=== PATIENT | male | born 1960 | race Caucasian/White ===

== ENCOUNTER 2019-04-25 07:15 | Emergency (ER) | payer MEDICARE ==
[~2019-04-25] VITALS: Ht 193 cm; Wt 95.1 kg
[~2019-04-25 07:15] MED LIST: AZIT200S PO; B12 INJECTION SC; CEFD250S26 PO; CEPH-368 PO; CLON1TAB11 PO; FENT1PAT76 TD; HYDR-36 PO; IBUPROFEN PO; METH750T87 PO; MORP60TA63 PO; OXYC30TA74 PO; OXYC5SOL8 PO; SILD50TA PO; TESTOSTERONE SC; TIZA4TAB2 PO; TRAM50TA2 PO
[2019-04-25 07:21] VITALS: BP 132/81
--- NOTE | 2019-04-25 07:28 | NUR ---
EKG IN TRIAGE
--- NOTE | 2019-04-25 07:39 | NUR ---
OVER THE LAST WEEK I HAVE BEEN FEELING PROGGRESSIVELY TREMULOUS. THIS MORNING I WOKE UP WITH CHEST PAINS THAT RADIATED DOWN MY LEFT ARM. HX of AFIB-CONTROLLED WITH MULTAQ PRESCRIBED BY DR. WINTERS ON [facility]
--- NOTE | 2019-04-25 07:50 | NUR ---
WITH [facility] PATIENT FILLED [address] KLONOPIN MID MARCH. DENIES DOING SO HOWEVER, WITH FURTHER CONVERSATION PATIENT ADMITS TO HAVING TROUBLE GETTING REFILL FOR KLONOPIN FOR THE LAST YEARS (HAS BEEN TAKING FOR 20 YEARS). REPORTS LAST PILL 17 DAYS AGO
[2019-04-25] MEDS ORDERED: METO50TA82 PO (07:52)
[2019-04-25] MEDS ORDERED: DRON400T PO (07:52)
[2019-04-25] MEDS ORDERED: RIVA20TA PO (07:52)
[2019-04-25] MEDS ORDERED: SERT-237 PO (07:52)
--- NOTE | 2019-04-25 08:00 | NUR ---
PATIENT LEFT BEFORE DISCHARGE PAPERWORK COULD BE SIGNED. ER PROVIDER MADE AWARE NO PIV IN PLACE
[2019-04-25 08:48] LABS: BASOPHILS # (AUTO) 0.05 x10^3/uL (0-0.1); BASOPHILS % (AUTO) 1 % (0-1); EOSINOPHILS # (AUTO) 0.26 x10^3/uL (0-0.4); EOSINOPHILS % (AUTO) 3 % (1-7); LYMPHOCYTES # (AUTO) 1.09 x10^3/uL (1-3.4); LYMPHOCYTES % (AUTO) 14 % (22-44); MD NO; MEAN CORPUSCULAR HEMOGLOBIN 32.6 pg (27.5-34.5); MEAN CORPUSCULAR VOLUME 95.8 fL (81-97); MEAN PLATELET VOLUME 7.6 fL (7.4-10.4); MONOCYTES # (AUTO) 0.49 x10^3/uL (0.2-0.8); MONOCYTES % (AUTO) 6 % (2-9); NEUTROPHILS # (AUTO) 6.03 x10^3/uL (1.8-6.8); NEUTROPHILS % (AUTO) 76 % (42-75); PLATELET COUNT 284 x10^3/uL (130-400); RED BLOOD COUNT 4.98 x10^6/uL (4.38-5.82); RED CELL DISTRIBUTION WIDTH 13.1 % (9.4-14.8)
[2019-04-25 08:58] LABS: ALANINE AMINOTRANSFERASE 52 U/L (12-78); ALBUMIN 3.1 g/dL (3.4-5.0); ANION GAP 6 mmol/L (5-15); CALCIUM 8.4 mg/dL (8.5-10.1); CHLORIDE 112 mmol/L (98-107); CREATININE 0.99 mg/dL (0.7-1.3)
[2019-04-25 09:02] LABS: ALKALINE PHOSPHATASE 89 U/L (45-117); BILIRUBIN,TOTAL 0.2 mg/dL (0.2-1.0); TOTAL PROTEIN 6.7 g/dL (6.4-8.2); TROPONIN I < 0.015 ng/mL (0.000-0.045)
== END 2019-04-25 09:22 | disposition home or self-care (01) ==
LOC: ED 08:09
DX: R06.00 Dyspnea, unspecified (principal); F41.1 Generalized anxiety disorder; R06.4 Hyperventilation; Z90.49 Acquired absence of other specified parts of digestive tract
CPT/HCPCS: 36415; 71045; 80053; 84484; 85025; 93005; 99284

== ENCOUNTER 2019-07-24 10:42 | Emergency (ER) | payer MEDICARE ==
[~2019-07-24] VITALS: Ht 193 cm; Wt 95.7 kg
[~2019-07-24 10:42] MED LIST changes: +DRON400T PO; +METO50TA82 PO; +RIVA20TA PO; +SERT-237 PO
--- NOTE | 2019-07-24 11:00 | NUR ---
ASSUMED CARE OF PATIENT IN ROOM 15. DR. MCALLISTER AT BEDSIDE PERFORMING ULTRASOUND ON FACIAL TISSUE.
[2019-07-24 11:02] VITALS: BP 133/77
[2019-07-24] MEDS ORDERED: ALPR0.5T6 PO (11:07)
[2019-07-24] MEDS ORDERED: CYCL-259 PO (11:07)
[2019-07-24] MEDS ORDERED: SODIUM CHLORIDE 0.9% 1,000ML IVBOLUS ONE (11:30)
[2019-07-24] MEDS ORDERED: CEFTRIAXONE PMX 1GM/50ML 50 ML IV ONE (11:30)
[2019-07-24] MEDS ORDERED: MORPHINE SULFATE 4 MG/ML, 1ML ONE ×2 (11:33→12:02)
[2019-07-24] MEDS ORDERED: CEFTRIAXONE PMX 1GM/50ML 50 ML ONE (11:33)
--- NOTE | 2019-07-24 11:40 | NUR ---
BREAK RN: PT UPRIGHT ON GURNEY AWAKE & CALM, C/O PAIN TO LIP- MEDICATED PER EMAR, NO RESP DISTRESS, RESPONDS APPROP TO STAFF, COMFORT MEASURES PROVIDED, CALL LIGHT WITHIN REACH.
[2019-07-24] MEDS: MORPHINE SULFATE 4 MG/ML, 1ML IVPush PRN ×2 (11:43→12:10)
[2019-07-24 11:45] LABS: BASOPHILS # (AUTO) 0.01 x10^3/uL (0-0.1); BASOPHILS % (AUTO) 0 % (0-1); EOSINOPHILS # (AUTO) 0.02 x10^3/uL (0-0.4); EOSINOPHILS % (AUTO) 0 % (1-7); LYMPHOCYTES # (AUTO) 0.58 x10^3/uL (1-3.4); LYMPHOCYTES % (AUTO) 4 % (22-44); MD NO; MEAN CORPUSCULAR HEMOGLOBIN 31.9 pg (27.5-34.5); MEAN PLATELET VOLUME 8.2 fL (7.4-10.4); MONOCYTES # (AUTO) 1.23 x10^3/uL (0.2-0.8); MONOCYTES % (AUTO) 8 % (2-9); NEUTROPHILS # (AUTO) 13.92 x10^3/uL (1.8-6.8); NEUTROPHILS % (AUTO) 88 % (42-75); PLATELET COUNT 191 x10^3/uL (130-400); RED BLOOD COUNT 5.31 x10^6/uL (4.38-5.82); RED CELL DISTRIBUTION WIDTH 13.9 % (9.4-14.8)
[2019-07-24 12:02] LABS: ALBUMIN 3.3 g/dL (3.4-5.0); ANION GAP 8 mmol/L (5-15); CALCIUM 8.5 mg/dL (8.5-10.1); CHLORIDE 105 mmol/L (98-107)
--- NOTE | 2019-07-24 13:26 | NUR ---
Patient given discharge instructions and they have confirmed that they understand the instructions. Patient ambulatory with steady gait.
== END 2019-07-24 13:27 | disposition home or self-care (01) ==
LOC: ED 11:10
DX: K13.0 Diseases of lips (principal); R51 Headache; I48.91 Unspecified atrial fibrillation
CPT/HCPCS: 36415; 80048; 82040; 83605; 85025; 87040; 87077; 87147; 96365; 96375; 99283; J0696; J2270; J7030; 87186

== ENCOUNTER 2019-07-25 11:09 | Inpatient (IN) | payer MEDICARE ==
[~2019-07-25] VITALS: Ht 193 cm; Wt 97.0 kg
[~2019-07-25 11:09] MED LIST changes: +ALPR0.5T6 PO; +CYCL-259 PO
[2019-07-25] MEDS ORDERED: PHARMACOKINETIC CONSULTATION MC ONE ×2 (12:00→18:30)
[2019-07-25] MEDS ORDERED: VANCOMYCIN 2,000 MG in SODIUM CHLORIDE 0.9% 500 ML IV ONE (12:00)
[2019-07-25] MEDS ORDERED: VANCOMYCIN PER PHARMACY MC ONE (12:00)
[2019-07-25] MEDS ORDERED: SODIUM CHLORIDE 0.9% 1,000ML IVBOLUS ONE (12:00)
[2019-07-25] MEDS ORDERED: MORPHINE SULFATE 4 MG/ML, 1ML ONE ×2 (12:06→13:02)
[2019-07-25] MEDS ORDERED: ONDANSETRON 2MG/ML, 2ML ONE (12:06)
[2019-07-25 12:13] LABS: MEAN CORPUSCULAR HEMOGLOBIN 31.9 pg (27.5-34.5); MEAN CORPUSCULAR HGB CONC 33.1 g/dL (33.2-36.2); MEAN CORPUSCULAR VOLUME 96.3 fL (81-97); MEAN PLATELET VOLUME 7.8 fL (7.4-10.4); PLATELET COUNT 191 x10^3/uL (130-400); RED BLOOD COUNT 5.06 x10^6/uL (4.38-5.82); RED CELL DISTRIBUTION WIDTH 14.1 % (9.4-14.8)
[2019-07-25] MEDS: MORPHINE SULFATE 4 MG/ML, 1ML IVPush PRN ×3 (12:14→20:33)
[2019-07-25 12:21] LABS: ALBUMIN 2.9 g/dL (3.4-5.0); ANION GAP 10 mmol/L (5-15); CALCIUM 8.5 mg/dL (8.5-10.1); CHLORIDE 101 mmol/L (98-107)
--- NOTE | 2019-07-25 12:21 | NUR ---
IV PLACED, LABS DRAWN WITH START. IVF AND ANTIBIOTIC INFUSING PER ERP ORDER. PT MEDICATED FOR 9.5/10 FACE/HEAD PAIN. VSS/UPDATED IN COMPUTER. PT PLACED ON ALL ROOM MONITORING DEVICES. CALL LIGHT WITHIN REACH, WARM BLANKET PROVIDED.
[2019-07-25 12:25] LABS: ALANINE AMINOTRANSFERASE 26 U/L (12-78); ALKALINE PHOSPHATASE 134 U/L (45-117); BILIRUBIN,TOTAL 1.1 mg/dL (0.2-1.0); CREATININE 1.53 mg/dL (0.7-1.3); TOTAL PROTEIN 6.8 g/dL (6.4-8.2)
[2019-07-25] MEDS ORDERED: ONDANSETRON 2MG/ML, 2ML IVPush ONE (12:30)
[2019-07-25 12:50] LABS: BASOPHILS # (AUTO) 0.04 x10^3/uL (0-0.1); BASOPHILS % (AUTO) 0 % (0-1); EOSINOPHILS # (AUTO) 0.02 x10^3/uL (0-0.4); EOSINOPHILS % (AUTO) 0 % (1-7); LYMPHOCYTES # (AUTO) 0.53 x10^3/uL (1-3.4); LYMPHOCYTES % (AUTO) 3 % (22-44); MD SCAN; MONOCYTES # (AUTO) 0.91 x10^3/uL (0.2-0.8); MONOCYTES % (AUTO) 6 % (2-9); NEUTROPHILS # (AUTO) 13.92 x10^3/uL (1.8-6.8); NEUTROPHILS % (AUTO) 90 % (42-75)
--- NOTE | 2019-07-25 13:00 | NUR ---
VSS/UPDATED IN COMPUTER
--- NOTE | 2019-07-25 13:30 | NUR ---
PT IN CT.
[2019-07-25] MEDS ORDERED: OMNIPAQUE 350 MG/ML, 75ML BOTTLE ONE (13:39)
--- NOTE | 2019-07-25 14:05 | NUR ---
DR DE LEON IN TO SEE PT.
[2019-07-25] MEDS ORDERED: VANCOMYCIN PER PHARMACY MC PRN (14:30)
[2019-07-25] MEDS ORDERED: PIPERACILLIN/TAZO/PMX 3.375GM 50 ML IV SCH (14:30)
--- NOTE | 2019-07-25 14:36 | NUR ---
REPORT TO MARIA ELENA DAVEY, PT READY FOR TRANSPORT AFTER I&D OF LIP. PT REQUESTING 2ND DOSE OF MORPHINE, STATES NO CHANGE IN PAIN LEVEL SINCE 1ST DOSE.
[2019-07-25 14:40] LABS: TROPONIN I < 0.015 ng/mL (0.000-0.045)
--- NOTE | 2019-07-25 14:52 | NUR ---
PINK SEPSIS SHEET TO ACCOMPANY PT.
[2019-07-25] MEDS ORDERED: LIDOCAINE-MPF 1%, 5ML ONE (14:57)
[2019-07-25] MEDS ORDERED: LIDOCAINE 1%, 10ML INFIL ONE (15:00)
[2019-07-25] MEDS ORDERED: PHARMACY MAY ADJ FOR RENAL FX MC PRN (15:30)
--- NOTE | 2019-07-25 15:36 | NUR ---
I&D COMPLETED. CHANGE IN ROOM DISPO. ORDER FROM [facility] FOR MED/TELE.
[2019-07-25] MEDS ORDERED: PIPERACILLIN/TAZO/PMX 3.375GM 50 ML ONE (15:42)
[2019-07-25] MEDS: SODIUM CHLORIDE 0.9% 1,000 ML IV SCH (16:04)
--- NOTE | 2019-07-25 16:10 | NUR ---
TELE 2 ADMIT, CONTINUE TO HOLD IN ED UNTIL ROOM AVAILABLE. NS AND ZOSYN INFUSING PER ADMIT ORDER. UNABLE TO DOCUMENT ZOSYN ON EMAR. ZOSYN STARTED AT 1600.
--- NOTE | 2019-07-25 16:54 | NUR ---
REPORT TO RENEE DAVEY, PT READY FOR TRANSPORT.
[2019-07-25 17:42] VITALS: BP 95/60
[2019-07-25 17:44] LABS: ANION GAP 4 mmol/L (5-15); CALCIUM 8.1 mg/dL (8.5-10.1); CHLORIDE 104 mmol/L (98-107); CREATININE 1.17 mg/dL (0.7-1.3)
[2019-07-25] MEDS ORDERED: PHARMACOKINETIC MONITORING MC PRN (18:30)
[2019-07-25] MEDS ORDERED: OMNIPAQUE 350 MG/ML, 100ML BOTTLE ONE (19:00)
[2019-07-25 20:00] VITALS: BP 100/67
[2019-07-25] MEDS ORDERED: RIVAROXABAN 20 MG TABLET PO SCH (20:30)
[2019-07-25 20:48] LABS: TROPONIN I < 0.015 ng/mL (0.000-0.045)
[2019-07-26] MEDS: MORPHINE SULFATE 4 MG/ML, 1ML IVPush PRN ×6 (00:49→21:22)
[2019-07-26] MEDS: SODIUM CHLORIDE 0.9% 1,000 ML IV SCH ×4 (00:50→23:43)
[2019-07-26 02:00] VITALS: BP 93/63
[2019-07-26 05:53] LABS: BASOPHILS # (AUTO) 0.03 x10^3/uL (0-0.1); BASOPHILS % (AUTO) 0 % (0-1); EOSINOPHILS # (AUTO) 0.11 x10^3/uL (0-0.4); EOSINOPHILS % (AUTO) 1 % (1-7); LYMPHOCYTES # (AUTO) 0.67 x10^3/uL (1-3.4); LYMPHOCYTES % (AUTO) 7 % (22-44); MD NO; MEAN CORPUSCULAR HEMOGLOBIN 32.4 pg (27.5-34.5); MEAN CORPUSCULAR HGB CONC 34.2 g/dL (33.2-36.2); MEAN CORPUSCULAR VOLUME 94.7 fL (81-97); MEAN PLATELET VOLUME 8.1 fL (7.4-10.4); MONOCYTES # (AUTO) 0.93 x10^3/uL (0.2-0.8); MONOCYTES % (AUTO) 10 % (2-9); NEUTROPHILS # (AUTO) 7.78 x10^3/uL (1.8-6.8); NEUTROPHILS % (AUTO) 82 % (42-75); PLATELET COUNT 145 x10^3/uL (130-400); RED BLOOD COUNT 4.26 x10^6/uL (4.38-5.82); RED CELL DISTRIBUTION WIDTH 14.4 % (9.4-14.8)
[2019-07-26 05:59] LABS: ALBUMIN 2.4 g/dL (3.4-5.0); ANION GAP 8 mmol/L (5-15); CHLORIDE 104 mmol/L (98-107)
[2019-07-26 06:04] LABS: ALANINE AMINOTRANSFERASE 21 U/L (12-78); ALKALINE PHOSPHATASE 117 U/L (45-117); TOTAL PROTEIN 6.1 g/dL (6.4-8.2); TROPONIN I 0.023 ng/mL (0.000-0.045)
[2019-07-26] MEDS: METOPROLOL TARTRATE 50 MG TAB PO SCH (07:56)
[2019-07-26 08:09] VITALS: BP 114/69
[2019-07-26] MEDS ORDERED: AMPICILLIN/SULBACTAM 3 GM in SODIUM CHLORIDE 0.9% 100 ML IV SCH (09:00)
[2019-07-26] MEDS ORDERED: VANCOMYCIN 2,000 MG in SODIUM CHLORIDE 0.9% 500 ML IV SCH (12:00)
[2019-07-26 14:27] VITALS: BP 103/66
[2019-07-26] MEDS ORDERED: RIVAROXABAN 20 MG TABLET PO SCH (17:00)
[2019-07-26 18:54] VITALS: BP 110/71
[2019-07-27 00:47] VITALS: BP 132/75
[2019-07-27] MEDS: MORPHINE SULFATE 4 MG/ML, 1ML IVPush PRN ×2 (01:29→06:14)
[2019-07-27] MEDS: VANCOMYCIN 2,000 MG in SODIUM CHLORIDE 0.9% 500 ML IV SCH ×2 (05:35→23:37)
[2019-07-27] MEDS: SODIUM CHLORIDE 0.9% 1,000 ML IV SCH ×3 (05:37→19:53)
[2019-07-27] MEDS: METOPROLOL TARTRATE 50 MG TAB PO SCH (09:00)
[2019-07-27] MEDS: HYDROmorphone 1 MG/ML, 1ML INJ IV PRN ×4 (09:05→23:38)
[2019-07-27] MEDS ORDERED: LIDOCAINE 1%-EPI 1:100K, 20ML INFIL ONE (12:30)
[2019-07-27 13:50] VITALS: BP 114/69
[2019-07-27 19:06] VITALS: BP 114/67
[2019-07-28 00:44] LABS: RAPID INFLUENZA A Negative (Negative); RAPID INFLUENZA B Negative (Negative)
[2019-07-28 01:35] VITALS: BP 112/79
[2019-07-28] MEDS: HYDROmorphone 1 MG/ML, 1ML INJ IV PRN ×3 (03:54→20:37)
[2019-07-28] MEDS: SODIUM CHLORIDE 0.9% 1,000 ML IV SCH ×3 (04:31→19:44)
[2019-07-28 06:39] LABS: BASOPHILS # (AUTO) 0.02 x10^3/uL (0-0.1); BASOPHILS % (AUTO) 0 % (0-1); EOSINOPHILS # (AUTO) 0.28 x10^3/uL (0-0.4); EOSINOPHILS % (AUTO) 5 % (1-7); LYMPHOCYTES # (AUTO) 0.84 x10^3/uL (1-3.4); LYMPHOCYTES % (AUTO) 15 % (22-44); MD NO; MEAN CORPUSCULAR HEMOGLOBIN 31.4 pg (27.5-34.5); MEAN CORPUSCULAR HGB CONC 32.8 g/dL (33.2-36.2); MEAN CORPUSCULAR VOLUME 95.6 fL (81-97); MEAN PLATELET VOLUME 7.6 fL (7.4-10.4); MONOCYTES # (AUTO) 0.61 x10^3/uL (0.2-0.8); MONOCYTES % (AUTO) 11 % (2-9); NEUTROPHILS # (AUTO) 4.02 x10^3/uL (1.8-6.8); NEUTROPHILS % (AUTO) 70 % (42-75); PLATELET COUNT 197 x10^3/uL (130-400); RED BLOOD COUNT 4.27 x10^6/uL (4.38-5.82); RED CELL DISTRIBUTION WIDTH 14.3 % (9.4-14.8)
[2019-07-28 06:43] LABS: ANION GAP 8 mmol/L (5-15); CHLORIDE 105 mmol/L (98-107); CREATININE 0.72 mg/dL (0.7-1.3)
[2019-07-28 07:04] VITALS: BP 128/82
[2019-07-28] MEDS ORDERED: SODIUM CHLORIDE 0.9% 1,000ML IVBOLUS ONE (07:30)
[2019-07-28] MEDS ORDERED: HYDROmorphone 1 MG/ML, 1ML INJ IV PRN (08:00)
[2019-07-28] MEDS ORDERED: OXYcodone 5 MG/5 ML ORAL.SOL UDC ONE (08:20)
[2019-07-28] MEDS: METOPROLOL TARTRATE 50 MG TAB PO SCH (08:24)
[2019-07-28] MEDS: OXYcodone ORAL.CONC 20 MG/ML PO PRN ×3 (08:24→22:03)
[2019-07-28] MEDS ORDERED: VANCOMYCIN 1,900 MG in SODIUM CHLORIDE 0.9% 250 ML IV SCH (11:30)
[2019-07-28] MEDS: CEFTAROLINE 600 MG in SODIUM CHLORIDE 0.9% 100 ML IV SCH (12:17)
[2019-07-28 12:25] VITALS: BP 117/76
[2019-07-28] MEDS ORDERED: OXYcodone IR 5MG TABLET ONE ×2 (15:18→21:54)
[2019-07-28 20:00] VITALS: BP 117/80
[2019-07-28] MEDS: MIRTAZAPINE 15 MG TABLET PO SCH (20:38)
[2019-07-29] MEDS: CEFTAROLINE 600 MG in SODIUM CHLORIDE 0.9% 100 ML IV SCH ×3 (00:11→16:18)
[2019-07-29 00:12] VITALS: BP 124/80
[2019-07-29] MEDS: SODIUM CHLORIDE 0.9% 1,000 ML IV SCH ×2 (02:10→09:03)
[2019-07-29 06:44] VITALS: BP 150/84
[2019-07-29] MEDS ORDERED: OXYcodone 5 MG/5 ML ORAL.SOL UDC ONE (08:55)
[2019-07-29] MEDS: OXYcodone ORAL.CONC 20 MG/ML PO PRN (09:00)
[2019-07-29] MEDS: METOPROLOL TARTRATE 50 MG TAB PO SCH (09:03)
[2019-07-29] MEDS ORDERED: HYDROmorphone 1 MG/ML, 1ML INJ IV PRN (11:00)
[2019-07-29] MEDS: ACETAMINOPHEN 325 MG TABLET PO SCH ×3 (12:05→22:22)
[2019-07-29] MEDS: HEPARIN 5,000 UNITS/ML, 1ML SQ SCH ×2 (12:06→12:12)
[2019-07-29 12:35] VITALS: BP 107/71
[2019-07-29] MEDS ORDERED: OXYcodone ORAL.CONC 20 MG/ML PO PRN (13:30)
[2019-07-29] MEDS ORDERED: SODIUM CHLORIDE 0.9% 1,000 ML IV SCH (14:16)
[2019-07-29] MEDS ORDERED: OXYcodone IR 5MG TABLET ONE (16:14)
[2019-07-29] MEDS ORDERED: RIVAROXABAN 20 MG TABLET PO SCH (17:00)
[2019-07-29 20:53] VITALS: BP 138/70
[2019-07-29] MEDS: METOPROLOL SUCCINATE 100 MG TAB.ER.24H PO SCH ×2 (20:57→21:00)
[2019-07-29] MEDS: MIRTAZAPINE 15 MG TABLET PO SCH (20:57)
[2019-07-30] MEDS: CEFTAROLINE 600 MG in SODIUM CHLORIDE 0.9% 100 ML IV SCH ×2 (00:21→08:35)
[2019-07-30 00:23] VITALS: BP 135/80
[2019-07-30] MEDS: ACETAMINOPHEN 325 MG TABLET PO SCH ×3 (05:22→15:30)
[2019-07-30 08:29] VITALS: BP 149/95
[2019-07-30] MEDS ORDERED: OXYcodone 5 MG/5 ML ORAL.SOL UDC PO PRN ×2 (09:00→13:30)
[2019-07-30] MEDS ORDERED: SODIUM CHLORIDE 0.9% 1,000 ML IV SCH ×2 (09:00→14:16)
[2019-07-30] MEDS ORDERED: OXYcodone 5 MG/5 ML ORAL.SOL UDC ONE (09:07)
[2019-07-30] MEDS ORDERED: ERAV50VI IV (14:14)
[2019-07-30 14:51] VITALS: BP 120/92
[2019-07-30] MEDS ORDERED: METOPROLOL SUCCINATE 50 MG TAB.ER.24H PO SCH (21:00)
== END 2019-07-30 16:25 | disposition home or self-care (01) | DRG 853 ==
LOC: ED 12:05 → EDIP 14:06 → 4EST 17:40
PROVIDERS: ADMIT Internal Medicine; ATTEND Internal Medicine
PROC: 0J910ZZ Drainage of Face Subcutaneous Tissue and Fascia, Open Approach (ICD-10-PCS; principal; 2019-07-27)
PROC: 02HV33Z Insertion of Infusion Device into Superior Vena Cava, Percutaneous Approach (ICD-10-PCS; 2019-07-29)
PROC: B5181ZA Fluoroscopy of Superior Vena Cava using Low Osmolar Contrast, Guidance (ICD-10-PCS; 2019-07-29)
PROC: B548ZZA Ultrasonography of Superior Vena Cava, Guidance (ICD-10-PCS; 2019-07-29)
DX: A41.02 Sepsis due to Methicillin resistant Staphylococcus aureus (principal); J15.212 Pneumonia due to Methicillin resistant Staphylococcus aureus; L03.211 Cellulitis of face; D68.69 Other thrombophilia; L02.01 Cutaneous abscess of face; N17.9 Acute kidney failure, unspecified; E83.51 Hypocalcemia; F19.10 Other psychoactive substance abuse, uncomplicated; F15.90 Other stimulant use, unspecified, uncomplicated; G44.209 Tension-type headache, unspecified, not intractable; I10 Essential (primary) hypertension; I48.91 Unspecified atrial fibrillation; K13.0 Diseases of lips; L73.1 Pseudofolliculitis barbae; Z79.01 Long term (current) use of anticoagulants; Z86.711 Personal history of pulmonary embolism; Z98.1 Arthrodesis status
CPT/HCPCS: 10060; 36415; 36573; 70487; 71045; 71275; 80048; 80053; 80202; 82040; 82330; 83605; 84145; 84484; 85025; 85379; 87040; 87077; 87147; 87186; 87400; 93005; 93306; 96365; 96374; 96375; 99283; 99285; G0378; J0295; J0696; J0712; J1170; J1644; J2405; J3370; J3490; Q9967; C1751; J2270; J7030; J7040; J7050

== ENCOUNTER → 2019-08-12 | Outpatient (CLI) | payer MEDICARE ==
[~2019-08-12] MED LIST changes: +ERAV50VI IV
== END | disposition home or self-care (01) ==
LOC: RAD 11:06
PROVIDERS: ATTEND Internal Medicine Infectious Disease
DX: J15.212 Pneumonia due to Methicillin resistant Staphylococcus aureus (principal)
CPT/HCPCS: 71046